=== PATIENT | male | born 1950 | race Caucasian/White ===

== ENCOUNTER → 2021-02-06 | Outpatient (CLI) | payer MEDICARE ==
[~2021-02-06] MED LIST: DICLOFENAC-MIS1 EAC3 PO; ELIQUIS 2.5 MG2.5 MG PO; HYDROCODON-ACE1 EAC2 PO; LEVOTHYROXINE25 MC1 PO; MELATONIN5 M2 PO; NEURONTIN300 MG PO; OMEGA 3 1,0001 EACH PO; OMEPRAZOLE20 M1 PO; ROBAXIN 750 MG750 MG PO
[2021-02-06 13:53] LABS: HEMOGLOBIN 13.4 gm/dl (14.0-17.5); RED BLOOD COUNT 4.61 M/UL (4.20-5.50); WHITE BLOOD COUNT 7.2 K/UL (4.5-11.0)
[2021-02-06 14:11] LABS: BUN/CREATININE RATIO 23 (0-10)
== END ==
LOC: EDSTATUS 12:30 → OPSV2 12:30
PROVIDERS: Orthopaedic Surgery
DX: Z01.818 Encounter for other preprocedural examination (principal); M16.11 Unilateral primary osteoarthritis, right hip; R91.8 Other nonspecific abnormal finding of lung field; I49.3 Ventricular premature depolarization; R94.31 Abnormal electrocardiogram [ECG] [EKG]
CPT/HCPCS: 36415; 71046; 80048; 81001; 85027; 87081; 93005

== ENCOUNTER → 2021-02-11 | Outpatient (CLI) | payer MEDICARE ==
[2021-02-11 16:16] LABS: BUN/CREATININE RATIO 21 (0-10)
== END ==
LOC: LAB 13:38
PROVIDERS: Orthopaedic Surgery
DX: Z53.8 Procedure and treatment not carried out for other reasons (principal)
CPT/HCPCS: 36415; 80048; 86850; 86900; 86901

== ENCOUNTER 2021-02-12 07:06 | Day surgery (SDC) | payer MEDICARE ==
[~2021-02-12] VITALS: Ht 172.7 cm; Wt 96.6 kg
[~2021-02-12 07:06] MED LIST changes: -ELIQUIS 2.5 MG2.5 MG PO; -HYDROCODON-ACE1 EAC2 PO
[2021-02-12] MEDS ORDERED: HYDROCODON-ACE1 EAC2 PO (12:56)
[2021-02-13 03:53] LABS: RED BLOOD COUNT 3.68 M/UL (4.20-5.50); WHITE BLOOD COUNT 12.2 K/UL (4.5-11.0)
[2021-02-13 04:03] LABS: HEMOGLOBIN 10.4 gm/dl (14.0-17.5)
[2021-02-13 04:29] LABS: BUN/CREATININE RATIO 17 (0-10)
[2021-02-13] MEDS ORDERED: ELIQUIS 2.5 MG2.5 MG PO (09:25)
--- NOTE | 2021-02-13 10:28 | NUR ---
INSTRUCTED MEDS ARE AT PHARMACY. INFORMATION ON [place]OBOND GIVEN TO PATIENT. FOLLOW UP APPOINTMENT GIVEN. VERBALIZED UNDERSTANDING HAYDE FELIZ R.N.
== END 2021-02-13 16:34 | disposition home health service (06) ==
LOC: ZOBSOF 07:06 → OR 07:06 → EDSTATUS 09:30 → M/S 13:43 → ZOBSOF 13:43 → M/S 13:43 → OR 02-13 16:34 → M/S 02-13 16:34
PROVIDERS: Orthopaedic Surgery
PROC: 3E0T3BZ Introduction of Anesthetic Agent into Peripheral Nerves and Plexi, Percutaneous Approach (ICD-10-PCS; 2021-02-12)
PROC: 0SR90JA Replacement of Right Hip Joint with Synthetic Substitute, Uncemented, Open Approach (ICD-10-PCS; principal; 2021-02-12 09:30)
DX: M16.0 Bilateral primary osteoarthritis of hip (principal); G89.18 Other acute postprocedural pain; K21.9 Gastro-esophageal reflux disease without esophagitis; M21.372 Foot drop, left foot; E03.9 Hypothyroidism, unspecified; Z88.2 Allergy status to sulfonamides; Z79.899 Other long term (current) drug therapy; Z01.812 Encounter for preprocedural laboratory examination; M16.11 Unilateral primary osteoarthritis, right hip; Z20.822 Contact with and (suspected) exposure to COVID-19
CPT/HCPCS: 36415; 72170; 76000; 80048; 85025; 86850; 86900; 86901; 97116-GP-CQ; 97161; 97166; 97530-GP-CQ; 97535; C1776; J0171; J0690; J1100; J1170; J2405; J2704; J2795; J3010; J3370; J7050; J7120; U0003